=== PATIENT | male | born 1970 | race Caucasian/White ===

== ENCOUNTER 2020-07-27 10:32 | Emergency (ER) | payer OTHER, SELFPAY ==
--- NOTE | ~2020-07-27 | XR_ITS ---
EXAMINATION: XR chest 1V portable DATE: 07/27/2020 12:34 INDICATION: Chest pain. TECHNIQUE: A single frontal view of the chest was obtained. COMPARISON: None. FINDINGS: The chest demonstrates clear lungs without pneumonia, pleural effusion, or pneumothorax. Th e heart size is normal. IMPRESSION: 1. No acute cardiopulmonary disease. Reviewed, dictated and finalized at location [facility]. C PROGRAMMER
[2020-07-27 11:32] VITALS: BP 206/116; PULSE 74; RESP 18; TEMP 36.8; O2SAT 100
--- NOTE | 2020-07-27 11:39 | ECG_ITS ---
Measurements Intervals [place] Rate: 72 P: 65 CA: 148 QRS: 70 QRSD: 92 T: 42 QT: 359 QTc: 395 Interpretive Statements SINUS RHYTHM NORMAL ECG Electronically Signed On 07-27-2020 11:54:53 [employer] by Dom Shine D.O.
--- NOTE | 2020-07-27 11:50 | ED.GENADULT ---
HPI - General Adult General Chief complaint: Chest Pain Stated complaint: chest pain Time Seen by Provider: 07/27/20 11:28 Source: patient History of Present Illness HPI narrative: Patient is a 50 y/o male complaining of mid sternal chest pain since yesterday. He states that his pain is mild and he describes it as sharp in nature. Deep breathing makes his pain worse. He has some SOB. He denies any fever, cough, vomiting or diarrhea. Related Data Allergies Allergy/AdvReac Type Severity Reaction Status Date / Time No Known Allergies Verified 03/24/10 13:56 Review of Systems Constitutional: Constitutional: Denies chills, Denies fever(s), Denies headache(s) and Denies weakness Eyes: Eyes: Denies blurry vision ENT: Denies headache(s) and Denies neck pain Cardiovascular: Cardiovascular: Reports chest pain and Reports dyspnea Respiratory: Respiratory: Denies cough and Reports dyspnea Gastrointestinal: Gastrointestinal: Denies abdominal pain, Denies diarrhea, Denies nausea and Denies vomiting Genitourinary: Genitourinary: Denies hematuria and Denies dysuria Musculoskeletal: Musculoskeletal: Denies back pain and Denies neck pain Neurologic: Denies headache(s) and Denies weakness Exam Const: General: no acute distress and well developed Orientation/consciousness: oriented to person, oriented to place, oriented to time and patient oriented x3 HENMT: Head: normocephalic Ears: external ears normal General nose exam: Normal external nose present Eyes: General: appearance normal, both eyes and all related structures Conjunctivae: conjunctivae normal Neck: Neck: normal visual inspection and full ROM Chest: Chest palpation & inspection: normal inspection of the chest and no tenderness Resp: Effort & Inspection: normal respiratory effort Auscultation: clear to auscultation bilaterally Cardio: Rate: regular rate Rhythm: regular rhythm GI: GI Palp: No abdominal tenderness and Yes Soft to palpation Skin: General skin exam: normal color and turgor normal Neuro: General: oriented to person, oriented to place, oriented to time and patient oriented x3 Cognition (Neuro): normal cognition Extrem: General: normal to inspection, full ROM and no pedal edema Psych: Appearance: grossly normal Mental Status: mental status grossly normal Affect: normal affect Course Reevaluation(s) Reevaluation #1: Rechecked patient. He states that he feels slightly better. He still has some chest pain. He does not want to wait for 2nd Troponin. He understands the risks of incomplete work up. He wants to leave. Date: 07/27/20 Time: 14:00 Vital Signs Vital signs: Vital Signs Temperature 36.8 C 07/27/20 11:32 Pulse Rate 74 07/27/20 11:32 Respiratory Rate 18 07/27/20 11:32 Blood Pressure 206/116 H 07/27/20 11:32 Pulse Oximetry 100 07/27/20 11:32 Temperature 36.8 C 07/27/20 11:32 Pulse Rate 62 07/27/20 14:05 Respiratory Rate 18 07/27/20 11:32 Blood Pressure 171/105 H 07/27/20 14:05 Pulse Oximetry 99 07/27/20 14:05 Medical Decision Making Vital Signs Vital Signs: Vital Signs Temperature 36.8 C 07/27/20 11:32 Pulse Rate 74 07/27/20 11:32 Respiratory Rate 18 07/27/20 11:32 Blood Pressure 206/116 H 07/27/20 11:32 Pulse Oximetry 100 07/27/20 11:32 Temperature 36.8 C 07/27/20 11:32 Pulse Rate 62 07/27/20 14:05 Respiratory Rate 18 07/27/20 11:32 Blood Pressure 171/105 H 07/27/20 14:05 Pulse Oximetry 99 07/27/20 14:05 Lab Data Result diagrams: 07/27/20 12:23 07/27/20 12:23 Labs: Lab Results 07/27/20 07/27/20 07/27/20 Range/Units 12:23 12:23 12:23 WBC 8.5 (4.5-10.0) K/mm3 RBC 4.31 L (4.6-6.20) M/mm3 Hgb 14.6 (14.0-18.0) g/dL Hct 42.0 (42.0-52.0) % MCV 97.4 (80-100) fl MCH 33.9 (26-34) pg MCHC 34.8 (32-36) g/dl RDW 12.7 (11.5-14.5) % Plt Count 331 (150-375) k/mm3 MPV 8.9 (7.4-10
[2020-07-27] MEDS: hydroCHLOROthiazide 25 MG TABLET PO (11:59)
[2020-07-27 12:36] LABS: Basophils Absolute Auto 0.1 K/mm3 (0.0-0.1); Basophils Percent Auto 0.8 % (0.2-1.2); Eosinophils Absolute Auto 0.2 K/mm3 (0-0.3); Eosinophils Percent Auto 2.2 % (0-4.4); Hemoglobin 14.6 g/dL (14.0-18.0); Immature Granulocyte Absolute 0.04 K/mm3 (0.00-0.031); Immature Granulocyte Percent A 0.5 % (0-0.5); Lymphocytes Absolute Auto 2.77 K/mm3 (0.9-3.2); Lymphocytes Percent Auto 32.7 % (18.3-44.2); Mean Corpuscular HGB Conc 34.8 g/dl (32-36); Mean Corpuscular Hemoglobin 33.9 pg (26-34); Mean Corpuscular Volume 97.4 fl (80-100); Mean Platelet Volume 8.9 fl (7.4-10.4); Monocytes Absolute Auto 0.6 K/mm3 (0.1-0.6); Monocytes Percent Auto 6.8 % (2.6-8.5); Neutrophils Absolute Auto 4.8 K/mm3 (1.3-6.7); Platelet Count Result 331 k/mm3 (150-375); Red Blood Count 4.31 M/mm3 (4.6-6.20); Red Cell Distribution Width 12.7 % (11.5-14.5); White Blood Count 8.5 K/mm3 (4.5-10.0)
[2020-07-27 12:50] LABS: Alanine Aminotransferase 23 U/L (4-50); Albumin Level 4.5 g/dL (3.5-5.1); Alkaline Phosphatase 65 U/L (38-126); Anion Gap 6 mmol/L (8-16); Aspartate Amino Transferase 39 U/L (17-59); Bilirubin,Total 0.6 mg/dL (0.2-1.3); Blood Urea Nitrogen 7 mg/dL (9-20); Calcium 9.1 mg/dL (8.4-10.2); Carbon Dioxide 28 mmol/L (22-30); Chloride 104 mmol/L (98-107); Estimated CRCL calculation 115 ml/min; Estimated Glomerular Filt Rate > 60; Glucose 84 mg/dL (75-110); Potassium 4.2 mmol/L (3.4-5.0); Sodium 138 mmol/L (137-145)
[2020-07-27 12:55] LABS: D Dimer 0.27 ug/mL (<0.48)
[2020-07-27 12:59] LABS: Troponin I < 0.012 ng/mL (0.000-0.034)
[2020-07-27 14:05] VITALS: BP 171/105; PULSE 62; O2SAT 99
[2020-07-27] MEDS: lisinopriL 20 MG TABLET PO (14:07)
== END 2020-07-27 14:30 | disposition home or self-care (01) ==
PROVIDERS: Emergency Provider Emergency Medicine; PCP Physician Assistant
DX: R07.2 Precordial pain (principal); I10 Essential (primary) hypertension
CPT/HCPCS: 36415; 71045; 80053; 84484; 85025; 85380; 93005; 99284; A9270

== ENCOUNTER 2021-04-02 11:25 | Emergency (ER) | payer OTHER, SELFPAY ==
--- NOTE | ~2021-04-02 | CT_ITS ---
EXAMINATION: CT abdomen pelvis wo con DATE: 04/02/2021 14:14 INDICATION: Right flank pain. Microhematuria. TECHNIQUE: Computed tomography (CT) of the abdomen and pelvis was performed without intravenous contr ast. Automated exposure control and iterative reconstruction technique were employed. Exam dose: 174 .76 mGy-cm total exam DLP. COMPARISON: None. FINDINGS: There is mild atelectasis at the posterior right lung base. Normal heart size. No pericardial or pleural effusion. Small sliding hiatal hernia. The liver, gallbladder, bile ducts, spleen, pancreas, and adrenal glands and kidneys are unremarkable on this limited noncontrast examination. Normal caliber of the abdominal aorta. No intraperitoneal or retroperitoneal or pelvic mass lesion or adenopathy or ascites. Normal appendix. No bowel obstruction or intraperitoneal free air. Minimal colonic diverticulosis; no CT evidence of d iverticulitis. Prostate enlargement and mild calcification. No suspicious osteolytic or osteoblastic lesions. IMPRESSION: No urinary tract calculus or hydroureteronephrosis Normal appendix Reviewed, dictated and finalized at [facility]. Reviewed, dictated and finalized at location A.
--- NOTE | ~2021-04-02 | XR_ITS ---
XR chest 2V DATE: 04/02/2021 14:13 INDICATION: Right posterior chest pain TECHNIQUE: PA and lateral views COMPARISON: 07/27/2020 portable AP chest FINDINGS: Normal heart size. No hilar or mediastinal enlargement. Aortic arch calcification. Mild discoid atelectasis or scarring at the right lung base. No pulmonary infiltrate or consolidation, pleural effusion or pulmonary vascular congestion or pneumo thorax. IMPRESSION: Mild discoid atelectasis or scarring at the right lung base Reviewed, dictated and finalized at location A.
[2021-04-02 11:37] VITALS: BP 153/93; PULSE 71; RESP 20; TEMP 36.8; O2SAT 100
[2021-04-02 13:08] VITALS: BP 142/80; PULSE 80; RESP 20; TEMP 36.8; O2SAT 98
--- NOTE | 2021-04-02 13:14 | ED.BACK ---
HPI - Back Pain/Injury General Chief Complaint: Back Pain/Injury Stated Complaint: R sided upper back pain upon inhalation Time Seen by Provider: 04/02/21 11:28 Source: patient Mode of arrival: ambulatory Limitations: no limitations History of Present Illness HPI Narrative: Previously well 50-year-old man who smokes comes in today complaining of sharp pain in his right upper back/flank that started 3 hours ago. He denies any falls or injuries and had no symptoms at onset. States the pain is worse with a deep breath or with certain movements. Denies fever, nausea, vomiting, cough, cold symptoms, abdominal pain, dysuria, hematuria, chest pain or dizziness. He has had no prior similar symptoms. MD elicited complaint: back pain Onset (ago): hour(s) (3) Timing: constant Severity: severe Quality: sharp Location: right upper back Radiation: none Exacerbating factors: movement, deep breaths and coughing/sneezing Relieving factors: none Associated symptoms: denies other symptoms Related Data Allergies Allergy/AdvReac Type Severity Reaction Status Date / Time No Known Allergies Verified 03/24/10 13:56 Review of Systems Review of Systems: All systems reviewed & are unremarkable except as noted in HPI and below Constitutional: Constitutional: Denies chills and Denies fever(s) Eyes: Eyes: Denies change in vision and Denies photophobia ENT: Denies nasal congestion and Denies sore throat Cardiovascular: Cardiovascular: Denies chest pain and Denies radiating jaw, neck or arm pain Respiratory: Respiratory: Denies cough, Denies dyspnea and Denies wheezing Gastrointestinal: Gastrointestinal: Denies abdominal pain, Denies nausea and Denies vomiting Genitourinary: Genitourinary: Denies hematuria and Denies dysuria Musculoskeletal: Musculoskeletal: Reports as per HPI, Reports back pain, Denies arthralgias and Denies joint swelling Integumentary/Breasts: Skin/Breast: Denies pruritus, Denies erythema and Denies rash Neurologic: Denies vertigo, Denies dizziness, Denies syncope, Denies focal weakness and Denies numbness Hematologic/Lymphatic: Hematologic/Lymphatic: Denies easy bleeding and Denies easy bruising Allergic/Immunologic: Allergic/Immunologic: Denies lip swelling and Denies throat swelling [facility] Social History Social History (Updated 04/02/21 @ 13:24 by Milton Restrepo MD) Smoking status: Current every day smoker Alcohol intake: current Alcohol use details: Occasional Substance use: never Living arrangements: with family Exam Const: General: healthy appearing and alert Orientation/consciousness: patient oriented x3 Limitations: no limitations Other: [id number] acute distress. Standing in room. Eyes: Conjunctivae: conjunctivae normal Pupils: Equal, round and reactive pupils present EOM: EOMs intact bilaterally Chest: Chest palpation & inspection: no tenderness Resp: Effort & Inspection: normal respiratory effort and not labored Auscultation: clear to auscultation bilaterally, no rales, no rhonchi and no wheezes Cardio: Rate: regular rate Rhythm: regular rhythm Heart sounds: no murmurs Skin: General skin exam: normal color, no jaundice and no pallor Rashes: no rashes Neuro: General: patient oriented x3, moves all extremities, no focal motor deficits and CN's II-XI intact bilaterally Speech: normal speech Gait exam (Neuro): Normal gait present Extrem: General: normal to inspection and no clubbing, cyanosis or edema Psych: Appearance: grossly normal and well kempt Mental Status: mental status grossly normal Affect: normal affect Attitude: cooperative Thought content: Yes Normal thought content present Course Vital Signs Vital signs: Vital Signs Temperature 36.8 C 04/02/21 11:37 Pulse Rate 71 04/02/21 11:37 Respiratory Rate 20 04/02/21 11:37 Blood Pressure 153/93 H 04/02/21 11:37 Pulse Oximetry 100 04/02/21 11:37 Temperature 36.8 C 04/02/21 13:08
[2021-04-02 13:39] LABS: Basophils Absolute Auto 0.06 K/mm3 (0.00-0.10); Basophils Percent Auto 0.9 % (0.0-1.0); Eosinophils Absolute Auto 0.13 K/mm3 (0.02-0.50); Hematocrit 44.8 % (40.0-54.0); Immature Granulocyte Absolute 0.03 K/mm3 (0.00-0.00); Immature Granulocyte Percent A 0.5 % (0.0-0.0); Lymphocytes Absolute Auto 2.46 K/mm3 (1.10-4.50); Lymphocytes Percent Auto 37.2 % (18.0-42.0); Mean Corpuscular HGB Conc 33.5 g/dL (32.0-36.0); Mean Corpuscular Hemoglobin 34.1 pg (27.0-31.0); Mean Corpuscular Volume 101.8 fL (78.0-102.0); Mean Platelet Volume 9.1 fl (8.7-11.0); Monocytes Absolute Auto 0.54 K/mm3 (0.10-0.90); Monocytes Percent Auto 8.2 % (2.0-11.0); Neutrophils Absolute Auto 3.4 K/mm3 (1.7-7.2); Neutrophils Percent Auto 51.2 % (50.0-70.0); Platelet Count Result 282 K/mm3 (150-420); Red Cell Distribution Width 13.3 % (11.6-14.4); White Blood Count 6.6 K/mm3 (4.8-10.8)
[2021-04-02 13:39] LABS: Add Urine Microscopic? YES; Appearance Urine Clear (Clear); Bilirubin Urine Negative (Negative); Blood Urine 1+ (Negative); Color Urine Light Yellow (Yellow); Glucose Urine UA Negative (Negative); Ketones Urine Negative (Negative); Leukocyte Esterase Ur Negative (Negative); Nitrate Urine Negative (Negative); Protein Urine Negative (Negative); Urobilinogen Urine 0.2 mg/dL (0.2-1.0)
[2021-04-02 13:50] LABS: Bacteria Urine None seen /hpf; Squamous Epithelial Cell Urine Rare /hpf (Few); WBC Urine 0-3 /hpf (0-3)
[2021-04-02 13:53] LABS: D Dimer 0.19 mg/L (0.19-0.50)
[2021-04-02 13:55] LABS: Alanine Aminotransferase 43 U/L (16-63); Alkaline Phosphatase 85 U/L (46-116); Anion Gap 10 mmol/L (8-16); Aspartate Amino Transferase 29 U/L (15-37); Bilirubin,Total 0.3 mg/dL (0.00-1.00); Blood Urea Nitrogen 11 mg/dL (7-18); Calcium 8.8 mg/dL (8.5-10.1); Carbon Dioxide 29 mmol/L (21-32); Chloride 106 mmol/L (98-108); Estimated Glomerular Filt Rate > 60; Glucose 93 mg/dL (70-99); Osmolality Calculated 299 mOsm/kg (285-295); Potassium 4.3 mmol/L (3.5-5.1); Sodium 145 mmol/L (136-145); Total Protein 7.7 g/dL (6.4-8.2)
[2021-04-02 15:15] VITALS: BP 120/80; PULSE 80; RESP 18; TEMP 36.7; O2SAT 99
== END 2021-04-02 16:10 | disposition home or self-care (01) ==
PROVIDERS: Emergency Provider Emergency Medicine; PCP Physician Assistant
DX: R07.81 Pleurodynia (principal)
CPT/HCPCS: 36415; 71046; 74176; 80053; 81001; 85025; 85380; 99283; 99284

== ENCOUNTER 2021-05-16 11:45 | Emergency (ER) | payer OTHER, SELFPAY ==
--- NOTE | ~2021-05-16 | XR_ITS ---
EXAMINATION: XR elbow RT 2V DATE: 05/16/2021 12:22 INDICATION: 3 weeks of nontraumatic diffuse right elbow pain TECHNIQUE: Anteroposterior and lateral views of the right elbow were obtained. COMPARISON: None. FINDINGS: Alignment is normal. No fracture or joint effusion. Joint spaces are normal. Soft tissues are unremar kable. IMPRESSION: 1. Negative right elbow radiographs. Reviewed, dictated and finalized at location A.
--- NOTE | 2021-05-16 11:59 | ED.UPPEXIN ---
HPI - Extremity Injury (Upper) General Chief Complaint: Extremity Injury, Upper Stated Complaint: right hurt elbow Source: patient Mode of arrival: ambulatory Limitations: no limitations History of Present Illness HPI narrative: this is a 51-year-old gentleman presents with what he believes is a right elbow dislocation, has good range of motion no pain or tenderness no known injuries, the patient does work out and feels like there is a mild bony protrusion with no swelling no bruising has good range of motion. complaint: injury to: right Onset (ago): hour(s) Other Extremity Injury: Right: elbow Related Data Home Medications Medication Instructions Recorded Confirmed No Home Medications 05/16/21 05/16/21 Allergies Allergy/AdvReac Type Severity Reaction Status Date / Time No Known Allergies Verified 05/16/21 12:26 Review of Systems Review of Systems: All systems reviewed & are unremarkable except as noted in HPI and below PMFSH Past Medical History Medical History Patient denies medical problems Social History Social History Smoking status: Current every day smoker Alcohol intake: current Alcohol use details: Occasional Substance use: never Exam Const: General: no acute distress and alert Orientation/consciousness: patient oriented x3 HENMT: Head: normal to inspection Eyes: Conjunctivae: conjunctivae normal Pupils: Equal, round and reactive pupils present Neck: Neck: normal visual inspection, no lymphadenopathy and no meningeal signs Chest: Chest palpation & inspection: normal inspection of the chest Cardio: Rate: regular rate Rhythm: regular rhythm GI: GI Palp: Yes Soft to palpation Back/Spine/Pelvis: Back: no CVA tenderness Skin: General skin exam: normal color Rashes: no rashes Neuro: General: patient oriented x3 and moves all extremities Psych: Mental Status: mental status grossly normal Affect: normal affect Course Course Emergency Course: X-ray report reviewed with patient with no dislocations no fractures. Critical Care Time Critical Care Time Critical Care Time: No Discharge Plan Discharge Clinical Impression: Tendinopathy of elbow Qualifiers: Laterality: right Qualified Code(s): M67.921 - Unspecified disorder of synovium and tendon, right upper arm Patient Disposition: Home, Self-Care Condition: Stable Instructions: Antibiotic Form, Tendinitis (ED) Additional Instructions: rest, take Tylenol or Motrin as needed follow-up with primary care physician if symptoms persist or worsen. Prescriptions: No Action No Home Medications RF: 0 Follow-up/Referrals: Catherine,FREDDIE Camp [Primary Care Provider] - Time of Disposition: 12:33
[2021-05-16 12:22] VITALS: BP 157/106; PULSE 79; RESP 20; TEMP 36.7; O2SAT 99
[2021-05-16 12:37] VITALS: BP 159/99; PULSE 73; RESP 20; TEMP 37; O2SAT 98
== END 2021-05-16 12:52 | disposition home or self-care (01) ==
PROVIDERS: Emergency Provider Emergency Medicine; PCP Physician Assistant
DX: M67.921 Unspecified disorder of synovium and tendon, right upper arm (principal)
CPT/HCPCS: 73070; 99282; 99283

== ENCOUNTER 2023-06-03 08:38 | Emergency (ER) | payer OTHER, SELFPAY ==
--- NOTE | ~2023-06-03 | XR_ITS ---
EXAMINATION: XR chest 2V 06/03/2023 09:27 INDICATION: Cold. Cough. PROCEDURE: 2 view chest COMPARISON: 04/02/2021 FINDINGS: The lungs are clear. The cardiomediastinal silhouette is within normal limits. There are no pleural effusions. There is no pneumothorax suspected. IMPRESSION: 1: NO ACUTE CARDIOPULMONARY DISEASE. Reviewed, dictated and finalized at location A.
[2023-06-03 08:38] VITALS: BP 174/100; PULSE 83; RESP 16; TEMP 37.2; O2SAT 100
--- NOTE | 2023-06-03 09:10 | ED.GENADULT ---
HPI - General Adult General Chief complaint: Upper Respiratory Infection Stated complaint: cough Time Seen by Provider: 06/03/23 09:10 Source: patient Mode of arrival: ambulatory Limitations: no limitations History of Present Illness HPI narrative: 53-year-old white male he has had a cough productive of clear to yellow sputum for the past week to 5 days with sinus congestion no chest pain shortness of breath fever sore throat muscle aches or pain. Is some pressure in his sinuses has postnasal drip it causes him to cough and have gagging spells and. He was sent home from work needs a note for Sunday and Sunday today being Sunday. He has been using leftover prednisone pack last 2 days thought it was a Z-Malvin. Otherwise eating drinking voiding and stooling well without rash or bingeing dizziness or lightheadedness lumps or bumps or swelling or any other complaints. He has no known drug allergies and no significant past surgical or medical history. Related Data Allergies Allergy/AdvReac Type Severity Reaction Status Date / Time No Known Allergies Verified 05/16/21 12:26 Review of Systems Review of Systems: All systems reviewed & are unremarkable except as noted in HPI and below PMFSH Past Medical History Medical History Patient denies medical problems Social History Social History Smoking status: Current every day smoker Alcohol intake: current Alcohol use details: Occasional Substance use: never Living arrangements: with family Exam Narrative: White male patient no apparent distress.? Head normocephalic, atraumatic.? Eyes conjunctiva pink sclera nonicteric.? Extraocular movements are intact.? Ears externally normal.? TMs normal. Oropharynx is clear with moist mucous membranes without exudates.? Neck is supple nontender no lymphadenopathy.? Back is nontender.? Lungs are clear.? Heart is regular rate and rhythm without murmurs gallops or rubs.? Chest wall is nontender.? Abdomen is soft and nontender no hepatosplenomegaly or masses no CVA tenderness no abdominal bruits.? Extremities no cyanosis clubbing or edema.? Skin is warm and dry without rashes or lesions.? Neurological patient is alert and oriented x4.? Motor and sensory grossly intact.? Gait is normal. Course Vital Signs Vital signs: Vital Signs Temperature 37.2 C 06/03/23 08:38 Pulse Rate 83 06/03/23 08:38 Respiratory Rate 16 06/03/23 08:38 Blood Pressure 174/100 H 06/03/23 08:38 Pulse Oximetry 100 06/03/23 08:38 Oxygen Delivery Room Air 06/03/23 08:38 Temperature 37.2 C 06/03/23 08:38 Pulse Rate 81 06/03/23 10:11 Respiratory Rate 20 06/03/23 10:11 Blood Pressure 172/99 H 06/03/23 10:11 Pulse Oximetry 97 06/03/23 10:11 Oxygen Delivery Room Air 06/03/23 10:11 Medical Decision Making MDM Narrative Medical decision making narrative: Patient Was placed in room 6 history and physical was performed. You sent for chest x-ray and COVID RSV as well was done And were negative Independent Historian: Patient? Differential Dx includes but not limited to: COVID flu RSV viral URI pneumonia sinusitis Medications were Reviewed:? reviewed? Medications treatments given: none Independently Interpreted by me:? chest x-ray showed no active disease as independently interpreted?? By me ??? Radiologist also reported no active disease? External Source Review:?? seen 05/16 for elbow pain Medical conditions/social Situation Impacting Patients Care:?? Shared decision Making:? evaluation was discussed all questions were asked and answered and patient agreed on the plan. will take amoxicillin 500 3 times a day for 5 days. Return to work tomorrow or the next day ? Clinical impression:? acute sinusitis? patient will call back for results of his COVID flu RSV swab which were negative. Nurse told
--- NOTE | 2023-06-03 09:59 | PC.NURSE ---
pt resting per cot. awaiting covid result. call levine in reach
[2023-06-03 10:11] VITALS: BP 172/99; PULSE 81; RESP 20; O2SAT 97
[2023-06-03 10:21] LABS: Influenza A QL RT-PCR Negative (Negative); Influenza B QL RT-PCR Negative (Negative); SARS-CoV-2 RNA PCR Negative (Negative)
[2023-06-03 10:37] LABS: RSV RNA, RT-PCR Negative (Negative)
== END 2023-06-03 10:15 | disposition home or self-care (01) ==
PROVIDERS: Emergency Provider Emergency Medicine; PCP Physician Assistant
DX: J01.90 Acute sinusitis, unspecified (principal); B96.89 Other specified bacterial agents as the cause of diseases classified elsewhere; F17.210 Nicotine dependence, cigarettes, uncomplicated; Z20.822 Contact with and (suspected) exposure to COVID-19
CPT/HCPCS: 71046; 87637; 99283